=== PATIENT | female | born 1960 | race Caucasian/White ===

== ENCOUNTER 2016-05-01 09:37 | Day surgery (SDC) | payer OTHER ==
[2016-04-29 15:13] VITALS: BMI 24.1
--- NOTE | 2016-05-01 09:13 | HP ---
Satellite [facility] - Chief Complaint Chief Complaint: right knee pain - Past Medical History Allergies/Adverse Reactions: Allergies Allergy/AdvReac Type Severity Reaction Status Date / Time meperidine HCl [From Demerol] Allergy "VOMITING" Verified 04/29/16 15:25 neomycin Allergy "HIVES" Verified 04/29/16 15:25 Penicillins Allergy "HIVES" Verified 04/29/16 15:25 Sulfa (Sulfonamide Allergy "HIVES" Verified 04/29/16 15:25 Antibiotics) ...LMP Comment: 2MONTHS AGO - Current Medications Current Medications: Home Medications Medication Instructions Recorded Aspirin Coated [Ecotrin -] 81 mg PO DAILY 04/29/16 Calcium Carbonate/Vitamin D3 1 each PO BID 04/29/16 [Calcium 600 + Vit D Tablet] Ferrous Gluconate [Iron] 256 mg PO DAILY 04/29/16 Folic Acid 0.8 mg PO DAILY 04/29/16 [place]-3 Fatty Acids/Fish Oil [Fish 1 each PO DAILY 04/29/16 Oil 1,000 mg Softgel] Oxycodone HCl/Acetaminophen 1 - 2 tab PO Q6H #50 tab MDD 8 05/01/16 [Percocet 5-325 mg Tablet -] Satellite Physical Exam - Physical Examination General Appearance: Well Nourished, Well Developed, Alert & Oriented x3 ENT: Clear Lung: Normal air movement Heart: Regular rate & rhythm Extremities: Other (right knee- + swelling,+ ttp, decr rom, nvi) Neurological: Intact, Alert, Oriented Satellite Impression/Plan - Impression/Plan Impression: right knee internal derangement Operative Procedure: right knee arthroscopy Date to be Performed: 05/01/16
[2016-05-01] MEDS ORDERED: ACETAMINOPHEN INJECTION 100 ML IVPB ONE (11:22)
[2016-05-01] MEDS ORDERED: LIDOCAINE 1%/EPI 1:100000 (50 ML MULTI DOSE VIAL) ONE (11:28)
[2016-05-01] MEDS ORDERED: MIDAZOLAM HCL 2 MG/2 ML SINGLE DOSE VIAL ONE (11:56)
[2016-05-01] MEDS ORDERED: KETOROLAC TROMETHAMINE 30 MG/1 ML VIAL ONE (12:05)
[2016-05-01] MEDS ORDERED: PROPOFOL 20 ML ONE (12:16)
[2016-05-01] MEDS ORDERED: LIDOCAINE 1%/EPI 1:100000 (50 ML MULTI DOSE VIAL) INF ONE (12:24)
[2016-05-01] MEDS ORDERED: BUPIVACAINE HCL/PF 0.5% (5MG/ML) 10 ML VIAL IJ ONE ×2 (12:25)
[2016-05-01] MEDS ORDERED: oxyCODONE HCL 5 MG TABLET PO PRN (12:46)
[2016-05-01] MEDS ORDERED: ONDANSETRON 4 MG/2 ML VIAL IVPUSH PRN (12:46)
[2016-05-01] MEDS ORDERED: PROMETHAZINE HCL 25 MG/1 ML VIAL IVPUSH PRN (12:46)
--- NOTE | 2016-05-01 12:53 | OP ---
Operative Note - Note: Operative Date: 05/01/16 Pre-Operative Diagnosis: internal derangement right knee Operation: right knee arthroscopy removal of loose bodies and chondroplasty patella and trochlea Post-Operative Diagnosis: Same as Pre-op Surgeon: Lalit Kim Bookkeeping Clerk: Gokul Au Anesthesia: Spinal Operative Report Dictated: Yes
[2016-05-01 14:49] VITALS: TEMP 98.3
[2016-05-01 18:20] VITALS: BP 131/74; PULSE 53
--- NOTE | 2016-05-02 08:13 | OP ---
DATE OF OPERATION: PREOPERATIVE DIAGNOSIS: Internal derangement right knee. POSTOPERATIVE DIAGNOSIS: Internal derangement right knee. PROCEDURE: Arthroscopy right knee with excision of loose bodies and chondroplasty of the patellofemoral joint. SURGICAL ATTENDING: Lalit Kim MD DENTAL MECHANIC: Gokul Au MD ANESTHESIA: Spinal. CLOSURE: 4-0 nylon. COMPLICATIONS: None. CONDITION: To recovery room in stable condition. DESCRIPTION OF OPERATIVE PROCEDURE: The patient was taken to the operating room on May 01, 2016. Spinal anesthesia was administered by the anesthesiologist. The patient stated that in previous surgery she got very nauseous from any of the medications administered from general anesthesia and, thus, it was decided to have spinal anesthesia. The right lower extremity was prepped and draped in the usual sterile fashion. The superolateral and mediolateral infrapatellar portal sites were infiltrated with 1% Xylocaine with epinephrine. Superolateral port was made with 15 blade and blunt trocar. The knee was aspirated and inflated with a cocktail of 10 mL of 1% Xylocaine, 10 mL of 0.5% Marcaine, and 20 mL of arthroscopic saline. Medial and lateral infrapatellar portal was then made with a 15 blade and blunt trocar. The scope was placed in the lateral infrapatellar port up to suprapatellar pouch. The pouch was visualized to be clean. The medial and lateral gutters were visualized to be clean. The undersurface of the patella and trochlea was found to have extensive grade 3-4 changes. Any loose articular cartilage was debrided using the shaver. With valgus stress on the knee, the medial compartment was entered. The medial meniscus was visualized and probed and found to be basically intact. There was some diffuse DJD throughout, but nothing was done to the condyle or the plateau. At 90 degrees, there were loose bodies that were attached and floating in the notch. These were debrided using biters and carlos. With a figure four position on the knee, the lateral compartment was entered. The lateral meniscus was visualized and probed and found to be intact. The lateral and femoral condyles were found to have, again, some diffuse changes but for the most part was intact as was the lateral tibial plateau. The knee was irrigated with copious amounts of irrigation. The portal was closed using 4-0 nylon. Prior to closure, 20 mL of 0.5% Marcaine was infused into the knee for postoperative analgesia. A sterile pressure dressing was placed over the knee. The patient was awakened from anesthesia and transferred to recovery in stable condition with no complications. Estimated blood loss negligible. Lilly [id number]
--- NOTE | 2016-05-04 13:50 | PATH ---
Surgical Pathology Report Patient Name: VIRGILIO BERRY [facility]. Rec. #: [id number] /Age/Gender: 1960 (Age: 56) / F Account: [id number] Location: [facility] Taken: 05/01/2016 Received: 05/01/2016 Reported: 05/04/2016 Physicians: Lalit Kim M.D. Specimen(s) Received SHAVINGS RIGHT KNEE Clinical History Right knee tear Final Diagnosis KNEE, RIGHT, ARTHROSCOPIC SHAVING: FIBROCARTILAGE WITH MYXOID DEGENERATIVE CHANGES, ALONG WITH PORTIONS OF SYNOVIUM AND HYALINE CARTILAGE. Electronically Signed Zeus Barnes M.D. Gross Description Received in formalin, labeled "right knee shavings," is a 4.5 x 3.5 x 0.4 cm. aggregate of pimentel-yellow soft tissue fragments. A motor vehicle representative portion is submitted in one cassette. /05/01/201605/01/2016
== END 2016-05-01 18:31 | disposition home or self-care (01) ==
LOC: JASU-SURG 09:37
PROVIDERS: ATTEND Orthopaedic Surgery
PROC: 0SCC4ZZ Extirpation of Matter from Right Knee Joint, Percutaneous Endoscopic Approach (ICD-10-PCS; 2016-05-01)
PROC: 0SBC4ZZ Excision of Right Knee Joint, Percutaneous Endoscopic Approach (ICD-10-PCS; principal; 2016-05-01 11:00)
DX: M23.8X1 Other internal derangements of right knee (principal); M17.11 Unilateral primary osteoarthritis, right knee; M23.41 Loose body in knee, right knee
CPT/HCPCS: 84703; 88304-TC; 94760